=== PATIENT | female | born 1935 ===

== ENCOUNTER 2018-11-20 20:30 | Emergency (ER) | payer MEDICARE, MEDICAID ==
[2018-11-20 20:46] VITALS: TEMP 98.3
[2018-11-20] MEDS ORDERED: Sodium Chloride 0.9% 1,000 ML IV SCH (21:15)
[2018-11-20 21:26] LABS: HEMOGLOBIN 17.8 g/dL (12.0-16.0); MEAN CELL VOLUME 89.8 fl (80.0-105.0); MEAN CORPUSCULAR HEMOGLOBIN 29.8 pg (25.0-35.0); MEAN CORPUSCULAR HGB CONC 33.1 g/dl (31.0-37.0); MEAN PLATELET VOLUME 11.1 fl (7.0-11.0); RBC 5.98 10^6/uL (3.5-6.1)
[2018-11-20] MEDS ORDERED: Nicardipine 20 MG/200 ML 20 MG/200 ML BAG IV PRN (21:34)
--- NOTE | 2018-11-20 21:51 | ED PDOC ---
Arrival/HPI - General Chief Complaint: Altered Mental Status Time Seen by Provider: 11/20/18 20:46 EM Caveat: Acuity of Condition - Critical Care Critical Care Minutes: 45 minutes - History of Present Illness Narrative History of Present Illness (Text): 11/20/18 21:10 83 year old female, unknown past medical history, presents to the emergency department following apparent syncopal episode at her residence. Patient had been found unresponsive at the time by neighbor, as per collateral information obtain. Patient upon question appears confused with garbled speech. When questioned patient does not respond appropriately. Patient able to move all extremities. No further history is available at this time. HPI and ROS limited due to patient's acuity of condition. Past Medical History - Provider Review Nursing Documentation Reviewed: Yes - Psychiatric Hx Substance Use: No Family/Social History - Physician Review Nursing Documentation Reviewed: Yes Family/Social History: No Known Family HX Smoking Status: Unknown If Ever Smoked Hx Alcohol Use: No Hx Substance Use: No Allergies/Home Meds Allergies/Adverse Reactions: Allergies Unobtainable Allergy (Verified 11/20/18 20:42) Home Medications: Home Meds Medication Instructions Recorded Confirmed Unobtainable 11/20/18 11/20/18 Review of Systems - Physician Review All systems were reviewed & negative as marked: Yes - Review of Systems Systems not reviewed;Unavailable: Acuity of Condition Physical Exam Vital Signs Reviewed: Yes Vital Signs Temp Pulse Resp BP Pulse Ox 11/20/18 20:42 98.3 F 78 18 200/100 H 94 L Temperature: Afebrile Blood Pressure: Hypertensive Pulse: Regular Respiratory Rate: Normal Appearance: Positive for: Well-Appearing, Non-Toxic, Comfortable Pain Distress: None Mental Status: Positive for: other (awake, but not oriented ) Finger Stick Blood Glucose: 126 - Systems Exam Head: Present: Atraumatic, Normocephalic Pupils: Present: PERRL Extroacular Muscles: Present: EOMI Conjunctiva: Present: Normal Ears: Present: NORMAL TM Mouth: Present: Moist Mucous Membranes Pharnyx: Present: Normal Neck: Present: Normal Range of Motion Respiratory/Chest: Present: Clear to Auscultation, Good Air Exchange. No: Respiratory Distress, Accessory Muscle Use Cardiovascular: Present: Regular Rate and Rhythm, Normal S1, S2. No: Murmurs Abdomen: No: Tenderness, Distention, Peritoneal Signs Back: Present: Normal Inspection Upper Extremity: Present: Normal Inspection, Normal ROM. No: Cyanosis, Edema Lower Extremity: Present: Normal Inspection, Normal ROM. No: Edema Neurological: Present: CN II-XII Intact, Motor Func Grossly Intact, Normal Sensory Function Skin: Present: Warm, Dry, Normal Color. No: Rashes Psychiatric: Present: Alert Medical Decision Making ED Course and Treatment: 11/20/18 21:10 Impression: 83 year old female presents for evaluation following apparent syncopal episode at her residence and was found unresponsive by her neighbor. Plan: -- Labs -- CT Head w/o contrast (Code stroke) -- EKG -- Stroke Team consult -- IV Fluids, Cardene IV Premix -- Reassess and disposition Progress Notes: 11/20/18 20:57 EKG shows NSR at 74 BPM with occasional PVC, LVH, and nonspecific ST/T wave changes. 11/20/18 21:12 Code stroke called Patient initially thought to be syncopal episode as per nursing staff. Upon review myself unclear whether if possible stroke. As well as unclear as to time of occurrence. Nevertheless code stroke called. EXAM: CT Head without Intravenous Contrast. Electronically signed on Nov 20, 2018 9:56:20 PM EDT by: Adiel Landin M.D. IMPRESSION: 1. Large left [id number] acute intraparenchymal hemorrhage. 2. Associated left cerebral hemisphere edema with midline shift to the right by an estimated 5.5 mm. 3. Acute hemorrhage collected in the sulcal grooves of the left cerebral hemisphere compatible with subarachnoid hemorrhage. 4. Acute hemorrhage seen within the left lateral and third ventricles compatible with intraventricular hemorrhage. 11/20/18 21:[address] Asher neuro and Dr. Richards neurosurgery. 11/20/18 21:[address] Richards. As per Dr. Richards patient will transfer to neurosurgical intensive care unit. 11/20/18 21:[address] Johnson neurosurgeon at [facility]. Accepts patient for transfer. 11/20/18 22:01 Patient accepted to [facility]. Patient accepted under Dr. Robin Downing Transfer (Adult): Based upon the information available at the time of transfer, the medical benefits reasonably expected from the provision of medical treatment at [facility] outweigh the increased risk to the patient for transfer from this facility. I have described the inherent risks and benefits of the transfer to the patient, and patient agrees to transfer. I have spoken to Dr. Robin Downing who has agreed to accept transfer of the patient and provide further medical treatment at the receiving facility. At the time of transfer, copies of all medical records sent which related to the emergency condition for which the individual presented. These records include observations of signs or symptoms, preliminary clinical impression, treatment provided, results of any completed test and an informed written consent to the transfer. - Critical Care Critical Care Minutes: 45 minutes - RAD Interpretation Radiology Orders: 11/20/18 21:03 CHEST PORTABLE [RAD] Stat 11/20/18 21:12 HEAD W/O (CODE STROKE) [CT] Stat - Medication Orders Current Medication Orders: Sodium Chloride (Sodium Chloride 0.9%) 1,000 mls @ 100 mls/hr IV .Q10H CHARITY Nicardipine HCl (Cardene Iv Premix) 20 mg in 200 mls @ 50 mls/hr IV .Q4H PRN; Protocol PRN Reason: TITRATE PER MD ORDER NIHSS Scale ([place]) Time Performed: 21:10 - How Severe is the Stoke Baseline Level of Consciousness: 0=Alert LOC to Questions: 1=One correct LOC to commands: 1=Obeys one correctly Best Gaze: 0=Normal Visual: 0=No visual loss Facial: 0=Normal Motor Arm - Left: 0=No drift Motor Arm - Right: 0=No drift Motor Leg - Left: 0=No drift Motor Leg - Right: 0=No drift Limb Ataxia: 0=Absent Sensory: 0=Normal Best Language: 0=No aphasia Dysarthia: 1=Mild to moderate slurring Extinction & Inattention (Neglect): 0=Normal, no object Score: 3 Risk Level: Minor Stroke Risk rTPA Inclusion/Exclusion - Refusal of Treatment Patient Refused Treatment: No - Inclusion Criteria for Altepase Patient is 18 years or Older: Yes The Clinical Diagnosis of Ischemic Stroke That is Causing a Potentially Disabling Neurological Deficit: No Time of Onset is Well Established to be Less Than 270 Minute Before Treatment Would Begin: No Risk/Benefit Discussed With Patient/Family Member Present: No - Exclusion Criteria for Altepase Uncontrolled Hypertension at Time of Treatment (Systolic BP above 185 or Diastolic BP above 110 mmHg): Yes Active Internal Bleeding: No Known Bleeding Diathesis Including but Not Limited to: Platelets Below 100,000/mm,PTT Above 40 sec After Heparin Use, Current Use of Oral Anitcoagulant With INR Greater Than 1.7 or PT Greater Than 15 secs: No Evidence of an Intracranial Hemorrhage: Yes Evidence of Major Acute Infarct With Signs Greater Than 1/3 MCA Territory: No Suspicion of Subarachnoid Hemorrhage on Pretreatment Evaluation Even if CT Head Negative For Hemorrhage: Yes - Warning to TPA With Conditions Following Conditions Weighed Against Anticipated Benefit: No Disposition/Present on Arrival - Present on Arrival Any Indicators Present on Arrival: No History of DVT/PE: No History of Uncontrolled Diabetes: No Urinary Catheter: No History of Decub. Ulcer: No History Surgical Site Infection Following: None - Disposition Have Diagnosis and Disposition been Completed?: Yes Diagnosis: SAH (subarachnoid hemorrhage), Cerebral hemorrhage Disposition: Transfer Overlook Disposition Time: 22:16 Condition: GUARDED Referrals: Peterson Workman Jr., MD [Primary Care Provider] - Follow up with primary Forms: [employer] (Turkish)
[2018-11-20 21:58] LABS: ALBUMIN 3.6 g/dL (3.0-4.8); ALT/SGPT 27 U/L (7-56); AST/SGOT 42 U/L (14-36); BLOOD UREA NITROGEN 15 mg/dL (7-21); CALCIUM 8.8 mg/dL (8.4-10.5); GFR NON-AFRICAN AMERICAN > 60
[2018-11-20 22:09] LABS: TROPONIN I 0.02 ng/mL
[2018-11-20 22:24] LABS: INR 1.14; PARTIAL THROMBOPLASTIN TIME 27.2 Seconds (26.9-38.3); PROTHROMBIN TIME 12.7 SECONDS (9.4-12.5)
--- NOTE | 2018-11-20 22:28 | CT ---
Date of service: 11/20/2018 PROCEDURE: CT HEAD WITHOUT CONTRAST. HISTORY: Code Stroke COMPARISON: None available. TECHNIQUE: Axial computed tomography images were obtained through the head/brain without intravenous contrast. Radiation dose: Total exam DLP = 870.97 mGy-cm. This CT exam was performed using one or more of the following dose reduction techniques: Automated exposure control, adjustment of the mA and/or kV according to patient size, and/or use of iterative reconstruction technique. FINDINGS: HEMORRHAGE: There is a 7.5 x 2.7 x 3.4 cm left temporoparietal acute hematoma with intraventricular extension most conspicuous in the left temporal horn. There is also extensive subarachnoid hemorrhage in the left frontal, parietal, temporal and occipital lobe. BRAIN: There is significant surrounding vasogenic edema, significant mass effect and effacement of the left lateral ventricle and 6 mm midline shift from left to right. No evidence of herniation. VENTRICLES: No hydrocephalus CALVARIUM: There is no calvarial fracture or extracranial soft tissue swelling. PARANASAL SINUSES: Predominantly clear. MASTOID AIR CELLS: Predominantly clear. OTHER FINDINGS: None. IMPRESSION: 1. Large left temporoparietal acute hematoma with intraventricular extension, significant surrounding vasogenic edema mass effect, effacement of the left lateral ventricle and 6 mm midline shift from left to right. No herniation. 2. Extensive left subarachnoid hemorrhage. A preliminary report was provided by [employer].
[2018-11-20 22:45] VITALS: BP 157/110; PULSE 84; RESP 18; O2SAT 95
--- NOTE | 2018-11-21 08:59 | RAD ---
Date of service: 11/20/2018 HISTORY: ams COMPARISON: No prior. FINDINGS: LUNGS: The lungs are well inflated. There is mild pulmonary venous congestion. There is triangular airspace disease in the right mid lung. PLEURA: There is an elliptical right-sided pleural-based opacity. No left pleural effusion or pneumothorax. CARDIOVASCULAR: The heart is normal in size. No aortic atherosclerotic calcifications present. OSSEOUS STRUCTURES: Within normal limits for the patient's age. VISUALIZED UPPER ABDOMEN: Normal. OTHER FINDINGS: None. IMPRESSION: Findings may represent loculated right pleural effusion with fluid in major fissure. Other differential considerations include pleural based mass and right mid lung pneumonia. Follow-up is advised.
--- NOTE | 2018-11-21 19:53 | CARD ---
APPROVED REPORT Date of service: 11/20/2018 EKG Measurement Heart [id number] <Conclusion> Sinus rhythm with premature atrial complexes Possible Left atrial enlargement Left ventricular hypertrophy Nonspecific T wave abnormality Abnormal ECG
== END 2018-11-20 23:00 | disposition short-term general hospital (02) ==
LOC: ED 20:30
DX: I60.9 Nontraumatic subarachnoid hemorrhage, unspecified (principal); I61.9 Nontraumatic intracerebral hemorrhage, unspecified
CPT/HCPCS: 70450; 71045; 80053; 82550; 83036; 83615; 84484; 85027; 85610; 85730; 86850; 86900; 93005; 99291; J7030

== ENCOUNTER 2019-01-13 08:37 | Outpatient (CLI) | payer MEDICARE, MEDICAID | END 2019-01-13 08:38 | disposition home or self-care (01) | LOC: RAD 08:37 | DX: I69.151 Hemiplegia and hemiparesis following nontraumatic intracerebral hemorrhage affecting right dominant side (principal) ==